=== PATIENT | female | born 1960 | race Caucasian/White ===

== ENCOUNTER 2025-05-15 14:50 | Emergency (ER) | payer BC, OTHER ==
[~2025-05-15] VITALS: Ht 162.6 cm; Wt 142.0 kg
--- NOTE | 2025-05-15 15:48 | HMCIMG ---
EXAM: CR right Knee, 4 View. CLINICAL HISTORY: pain COMPARISON: None provided. FINDINGS: BONES: No acute fracture or aggressive appearing osseous lesion. JOINTS: Medial compartment predominant mild to moderate tricompartmental right knee joint osteoarthritis. SOFT TISSUES: The soft tissues are unremarkable. IMPRESSION: 1. No acute findings. 2. Mild to moderate tricompartmental right knee osteoarthritis, most pronounced in the medial compartment. /[place]
--- NOTE | 2025-05-15 15:53 | ERN ---
General Chief Complaint: Knee Injury/Swelling Stated Complaint: LEFT KNEE INJURY Time Seen by MD: 14:52 Source: patient History of Present Illness Initial Comments Patient is a 65-year-old male coming in complaining of left knee pain. Patient states that she was getting up from a sitting position felt a pop in her left knee states now she is pain. Allergies: Coded Allergies: Codeine (Unverified Allergy, ITCHING,SHAKING, 05/08/12) Levofloxacin (Unverified Allergy, PAIN ALLOVER, 05/08/12) NSAIDS (Non-Steroidal Anti-Inflamma (Unverified Allergy, INTESTINAL PROBLEMS, 05/08/12) Penicillins (Unverified Allergy, RASH, 05/08/12) Sulfa(Sulfonamide Antibiotics) (Unverified Allergy, RASH, 05/08/12) aspirin (Unverified Allergy, INTESTINAL PROBLEMS, 05/08/12) carbamazepine (Unverified Allergy, intestinal problems, 05/08/12) clarithromycin (Unverified Allergy, BLISTERS, 05/08/12) Past Medical History Past Medical History: Hypertension Past Surgical History: Hysterectomy, Tonsillectomy Surgical History Other: RT SHOULDER ROS Dictation CONSTITUTIONAL: No chills, no fever, no weakness, no diaphoresis, no malaise. HEAD/FACE: No signs of trauma. EENT: No eye pain, no blurred vision, no tearing, no double vision, no ear pain, no ear discharge, no nose pain, no nasal congestion, no throat pain, no throat swelling, no mouth pain. RESPIRATORY: No cough, no orthopnea, no SOB, no stridor, no wheezing. CARDIOVASCULAR: No chest pain, no edema, no palpitations, no syncope. GASTROINTESTINAL/ABDOMINAL: No abdominal pain, no constipation, no diarrhea, no nausea, no vomiting. GENITOURINARY: No abnormal discharge, no dysuria, no frequent urination, no hematuria. No complaints of pain in the genitals. MUSCULOSKELETAL: No back pain, no gout, joint pain, no joint swelling, no muscle pain, no muscle stiffness, no neck pain. INTEGUMENTARY: No change in color, no change in hair/nails, no dryness, no lesion, no lumps, no rash. NEUROLOGICAL/PSYCH: No anxiety, not depressed, no emotional problem, no headache, no numbness, no pre-existing deficit, no history of seizures, no tremors, no weakness. HEMATOLOGIC/LYMPHATIC: Not anemic, no history of blood clots, no apparent bleeding, no bruising, glands not swollen. All Systems Negative, Except as Noted. Physical Exam Physical Exam Dictation VITAL SIGNS: Reviewed. GENERAL APPEARANCE: Alert, oriented x3, no acute distress, obese. HEAD AND FACE: Non-traumatic. EYES: PERRL, pink conjunctivas, eyelid no trauma, anterior chamber clear. EARS: Pinnas intact and no signs of trauma or erythema. Ear canals clear and no discharge. TMs no erythema. NOSE: No discharge, no bleeding. OROPHARYNX: Mouth normal, teeth no caries, tongue pink. Pharynx clear, no eryt josé antonio. Tonsils no exudates, no abscesses noted. Mucous membrane moist. NECK: Supple, non-tender, no thyromegaly, no masses, no JVD, no bruits. BREAST: Deferred. CHEST: No tenderness, no crepitus, no paradoxical movement, no retractions. LUNGS: Clear, well-ventilated, symmetric, no rales, no wheezing, no rhonchi, no stridor, good breath sounds bilaterally. HEART: Regular rate, regular rhythm, no murmur, no gallops. VASCULAR: No peripheral edema. ABDOMEN: Soft, positive bowel sounds, nondistended, no guarding, nontender, no rebound, no masses no hepatomegaly, no splenomegaly, no Diaz's sign, no hernias. RECTAL: Deferred. GENITAL: Deferred. NEUROLOGICAL: Normal speech, gross motor function intact, gross sensory function intact. MUSCULOSKELETAL: Neck nontender, full range of motion, back nontender, full range of motion. EXTREMITIES: Nontender, full range of motion. Left knee pain on Palpation, pain on flexion and extension SKIN: Color pink, dry, no turgor, no rash, no lacerations, no abrasions, no contusions. LYMPHATICS: Deferred. Results Laboratory and Microbiology Labs Reviewed?: Yes EKG/XRAY/US/CT/MRI X-RAY Comment [place] [address] [place] [id number] IMAGING REPORT Signed PATIENT: DIVINA TORRES MR#: [id number] : 1960 SEX: F AGE: 65 LOCATION: [facility] ORDER 06 STATUS: REG ER REPORT#: [id number] SERVICE 05 REASON: pain ORDERING PHYSICIAN: MIKE PLASCENCIA MD PROCEDURE: KNEE 3V LT - KNEE 3VWS LT EXAM: CR right Knee, 4 View. CLINICAL HISTORY: pain COMPARISON: None provided. FINDINGS: BONES: No acute fracture or aggressive appearing osseous lesion. JOINTS: Medial compartment predominant mild to moderate tricompartmental right knee joint osteoarthritis. SOFT TISSUES: The soft tissues are unremarkable. IMPRESSION: 1. No acute findings. 2. Mild to moderate tricompartmental right knee osteoarthritis, most pronounced in the medial compartment. /[place] DICTATED BY: SCARLETT OCHOA Jr., MD DATE: 05/15/251646 ELECTRONICALLY SIGNED BY: SCARLETT OCHOA Jr., MD DATE: 05/15/251646 MDM MDM: Differential diagnosis: Knee strain, ligament strain, patellar fracture, Rationale: Tests considered and ordered secondary to shared decision making include: Previous outside records reviewed: Old ER visits. Risk of complication and/or morbidity or mortality of patient management: None Medications-Per medication reconciliation Need for hospitalization: Patient does not meet criteria for hospitalization. Need for emergency major/minor surgery: No Patient is a 65-year-old female coming in complaining of left knee pain x-ray did not disclose acute findings. Knee immobilizer is in place. I did advised her appropriate follow up with PCP and hearing aid specialist for long-term management. ED Course Orders Procedure Category Date Status Time Knee 3vws Lt RAD 05/15/25 Resulted 15:06 Knee Immobilizer WILLY 05/15/25 In Process 15:06 Vital Signs Date Time Temp Pulse Resp B/P (MAP) Pulse Ox O2 Delivery O2 Flow Rate FiO2 05/15/25 14:51 98.4 93 18 159/98 97 Room Air 0 DX & DISP Disposition: Discharge Departure Impression: Primary Impression: Osteoarthritis of left knee Additional Impression: Knee strain Condition: Stable Scripts Acetaminophen (Tylenol Extra Strength) 500 Mg Tablet 1 TAB PO TIDP PRN for pain or fever for 3 Days, #10 TAB 0 Refills Prov: MIKE PLASCENCIA MD 05/15/25 Additional Instructions: FOLLOW-UP WITH PRIMARY CARE PROVIDER IN 1 TO 2 DAYS. TAKE MEDICATIONS DIRECTED HERE IN THE EMERGENCY ROOM. OKAY TO CONTINUE HOME MEDICATIONS UNLESS OTHERWISE DISCUSSED DURING YOUR VISIT IN THE EMERGENCY ROOM TODAY. RETURN TO YOUR NEAREST EMERGENCY ROOM IF SYMPTOMS WORSEN OR IF THERE IS NO IMPROVEMENT. CALL 911 IF YOU NEED IMMEDIATE ASSISTANCE. TAKE TYLENOL [id number] NEEDED AND IF NO CONTRAINDICATIONS ARE PRESENT. INCREASE ORAL HYDRATION. A WOUND CULTURE OR URINE CULTURE WAS ORDERED HERE IN THE EMERGENCY ROOM DEPARTMENT PLEASE FOLLOW-UP WITH PRIMARY CARE PROVIDER AND ADVISE THEM TO GET REPORTS FROM OUR FACILITY. IF YOU HAD ANY MANUEL WRAP/SPLINTS THAT WERE APPLIED HERE, PLEASE DO NOT REMOVE THEM UNTIL YOU SEE YOUR PRIMARY CARE OR SPECIALTY. Referrals: Referrals: NAM DARLING MD (PCP) Time of Disposition: 15:55 MIKE PLASCENCIA MD May 15, 2025 15:53
[2025-05-15] MEDS ORDERED: ACET-2743 PO (15:56)
[2025-05-15 16:05] VITALS: BP 155/87; PULSE 90; RESP 18; TEMP 98.1; O2SAT 98
== END 2025-05-15 16:15 | disposition home or self-care (01) ==
LOC: EDH 14:50
DX: S86.912A Strain of unspecified muscle(s) and tendon(s) at lower leg level, left leg, initial encounter (principal); M17.11 Unilateral primary osteoarthritis, right knee; I10 Essential (primary) hypertension; Z88.0 Allergy status to penicillin; Z88.1 Allergy status to other antibiotic agents; Z88.2 Allergy status to sulfonamides; Z88.5 Allergy status to narcotic agent; Z88.6 Allergy status to analgesic agent; Z90.710 Acquired absence of both cervix and uterus; X58.XXXA Exposure to other specified factors, initial encounter; Y93.89 Activity, other specified; Y92.89 Other specified places as the place of occurrence of the external cause; Y99.8 Other external cause status
CPT/HCPCS: 29505; 73562; 99283